=== PATIENT | female | born 1980 | race Caucasian/White ===

== ENCOUNTER 2023-03-18 08:17 | Emergency (ER) | payer OTHER, SELFPAY ==
[2023-03-18 08:38] VITALS: BP 110/79
[2023-03-18 09:18] LABS: % Basophils 0.4 % (0-2); % Eosinophils 1.4 % (0-6); % Immature Granulocytes 0.3 % (0-0.5); % Lymphocytes 19.8 % (20.5-51.1); % Monocytes 6.3 % (1.7-9.3); % Neutrophils 71.8 % (42.2-75.2); Absolute Eosinophils 0.2 10^3/uL (0-0.7); Absolute Lymphocytes 2.2 10^3/uL (1.2-3.4); Absolute Monocytes 0.7 10^3/uL (0.1-0.6); Absolute Neutrophils 8.1 10^3/uL (1.4-6.5); Hematocrit 33.1 % (37.0-47.0); Hemoglobin 10.4 g/dL (12.0-16.0); Mean Corp Hgb Conc. 31.4 g/dL (33.0-37.0); Mean Corpuscular Hgb 24.5 pg (27.0-31.0); Mean Corpuscular Volume 78.1 fL (81.0-99.0); Mean Platelet Volume 10.5 fL (7.4-10.4); Nucleated Red Blood Cells % 0 %; Platelet Count 347 10^3/uL (130-400); Red Blood Cell Count 4.24 10^6/uL (4.20-5.40); Red Cell Dist. Width 17.8 % (11.5-14.5); White Blood Cell Count 11.3 10^3/uL (4.8-10.8)
[2023-03-18 09:27] LABS: Urine Albumin Negative (Neg - Trace); Urine Bilirubin Negative (Negative); Urine Character Clear (Clear); Urine Color Yellow; Urine Glucose Negative (Negative); Urine Ketone Negative (Negative); Urine Leukocyte Negative (Negative); Urine Nitrite Negative (Negative); Urine Occult Blood 4+ (Negative); Urine Specific Gravity 1.015 (<1.030); Urine Urobilinogen Negative (Neg - 1+)
[2023-03-18 09:30] LABS: ALT (SGPT) 16 U/L (0-35); AST (SGOT) 22 U/L (14-36); Albumin 4.5 g/dl (3.5-5.0); Alkaline Phosphatase 50 U/L (38-126); Blood Urea Nitrogen 19 mg/dl (7-17); Calcium 9.6 mg/dl (8.4-10.2); Carbon Dioxide 24 mmol/L (22-30); Chloride 105 mmol/L (98-107); Glucose 90 mg/dl (70-99); Potassium 5.2 mmol/L (3.5-5.1); Sodium 134 mmol/L (135-145); Total Bilirubin 0.9 mg/dl (0.2-1.3); eGFR > 60.00
--- NOTE | 2023-03-18 10:02 | ED.GENMED ---
History of Present Illness
General
Chief Complaint: Abdominal Pain
Time Seen by Provider: 03/18/23 09:49
Travel History
Have you had any contact with someone who has COVID-19?: No
Do you have any symptoms of coronavirus? Fever > 100 degrees, chills, cough, shortness of breath, sore throat, loss of taste or smell, muscle aches, or headache?: No
History of Present Illness
History of Present Illness:
42-year-old female with history of cholecystectomy presents to the emergency department for evaluation of right lower quadrant abdominal pain beginning yesterday. Pain was maximal at onset, described as sharp and nonradiating. Pain is colicky in
nature, currently rated 4 out of 10. Denies any associated fever, chills, sweats, nausea, vomiting, diarrhea, or lower urinary tract voiding symptoms. Prior abdominal surgeries include cholecystectomy, tubal ligation, and x 1. Did not
take any medications for pain this morning
Past History
Past History
ED Past Medical History: None
ED Past Surgical History: Gynecological; Negative Cardiac, Cholecystectomy or
Social History
Tobacco: Non-smoker
Alcohol: None
Drug: None
Personal:
Living: with family
Review of Systems
Review of Systems
Allergies reviewed?: Yes
All Other Systems: ROS reviewed and negative except as documented in HPI and ROS
Phy Exam
Physical Exam
Physical Exam:
GEN: Well appearing, NAD, WDWN
HEENT: Oral mucosa moist, no scleral icterus
Cardiac: Regular rate
Lung: No respiratory distress, no tachypnea
Abdomen: Minimal right lower quadrant tenderness, not at McBurney's point, no rigidity or peritoneal signs
MSK: No gross deformity or injuries
Skin: Good color, no pallor or jaundice, no rashes
Neuro: AO x3, moves all extremities freely
Psych: Calm, cooperative
Course
Orders/Labs/Results
Orders:
Orders
03/18/23 08:54
CMP [Comprehensive Metabolic Panel] Urgent
Complete Blood Count/With Diff Urgent
Urinalysis Reflex To Culture Urgent
Date Specimen was Collected: 03/18/23
Time Specimen was Collected: 08:42
Urine Microscopic Reflex Cult Urgent
03/18/23 10:01
CT Abd/Pel (IV only)-DH only Urgent
Comment: on menses, hx of tubal, C section, graeme
Reason For Exam: RLQ pain
Abnormal Lab Results
03/18/23
08:54
WBC 11.3 H 10^3/uL
(4.8-10.8)
Hgb 10.4 L g/dL
(12.0-16.0)
Hct 33.1 L %
(37.0-47.0)
MCV 78.1 L fL
(81.0-99.0)
MCH 24.5 L pg
(27.0-31.0)
MCHC 31.4 L g/dL
(33.0-37.0)
RDW 17.8 H %
(11.5-14.5)
MPV 10.5 H fL
(7.4-10.4)
Absolute Neuts (auto) 8.1 H 10^3/uL
(1.4-6.5)
Absolute Monos (auto) 0.7 H 10^3/uL
(0.1-0.6)
Lymphocytes % 19.8 L %
(20.5-51.1)
Sodium 134 L mmol/L
(135-145)
Potassium 5.2 H mmol/L
(3.5-5.1)
BUN 19 H mg/dl
(7-17)
Ur Occult Blood Reflex 4+ A
(Negative)
Urine RBC 16-20 A /HPF
(0-2)
Urine Bacteria (Reflex) Few A
(Negative)
03/18/23 08:54
03/18/23 08:54
Vital Signs
Initial and Last Documented VS:
Initial Vital Signs
Temp Pulse Resp BP Pulse Ox
98.7 F 95 16 110/79 100
03/18/23 08:38 03/18/23 08:38 03/18/23 08:38 03/18/23 08:38 03/18/23 08:38
Last Documented Vital Signs
Temp Pulse Resp BP Pulse Ox
98.7 F 69 16 106/77 99
03/18/23 08:38 03/18/23 12:14 03/18/23 12:14 03/18/23 12:14 03/18/23 12:14
MDM/Problems Addressed
MDM/Problems Addressed:
Patient's exam is not concerning for acute surgical abdomen as she has only minimal reproducible tenderness. CT was obtained and this shows no evidence for acute appendicitis or ureterolithiasis. Additionally there are no ovarian pathology is
noted that would warrant follow-up ultrasound. Unclear etiology to symptoms with patient appears clinically stable and is suitable for continued outpatient follow-up
*Critical Care Note
Total Time (30-74mins, 75-104mins- exclusive of procedures): Not Applicable
ED Attending Note
-
Portions of this chart may have been created with voice recognition software.� Occasional wrong word or��sound alike� substitutions may have occurred due to the inherent limitations of voice recognition software.
Discharge Plan
Departure
Patient Disposition: Home (Routine Discharge)
Date of Disposition: 03/18/23
Time of Disposition: 11:47
Patient with high blood pressure during this ER visit?: No
Discharge Problem:
Acute right lower quadrant pain
Instructions: Abdominal Pain
Prescriptions:
No Action
ibuprofen 600 MG tablet
600 mg PO Q4HPRN PRN (Reason: cramps) 0RF
Referrals:
NONE,* [Family Provider] -
Activity Restrictions/Additional Instructions:
Take 600mg ibuprofen every 6-8 hours for pain control
Interventions
Interventions:
*Risk Screen - Suicide Last Done: 03/18/23 11:05
*General Assessment Last Done: 03/18/23 11:05
*Neglect/Abuse Screening Last Done: 03/18/23 11:05
ED- Fall Risk Assessment Last Done: 03/18/23 11:05
*ED COVID-19 Vaccine History Last Done: 03/18/23 08:38
*Nursing Disposition Last Done: 03/18/23 12:19
WG-Vttdtd-Fuhlmhuhnk Assessment Last Done: 03/18/23 11:05
Discharge Date and Time
Discharge Date/Time: 03/18/23 12:19
[2023-03-18 10:10] LABS: Urine Bacteria Few (Negative); Urine Red Blood Cell 16-20 /HPF (0-2)
[2023-03-18 12:14] VITALS: BP 106/77
== END 2023-03-18 12:19 | disposition home or self-care (01) ==
LOC: EMR 08:17
PROVIDERS: Emergency Medicine; EMERGENCY PHYSICIAN Emergency Medicine
DX: R10.31 Right lower quadrant pain (principal)
CPT/HCPCS: 99285; 74177; 80053; 81003; 81015; 85025; Q9967